=== PATIENT | female | born 1950 | race Caucasian/White ===

== ENCOUNTER 2024-06-07 18:19 | Emergency (ER) | payer MEDICARE, SELFPAY ==
[2024-06-07 18:24] VITALS: BP 164/78; PULSE 74; RESP 14; TEMP 37.2; O2SAT 95; BMI 21.3
--- NOTE | 2024-06-07 18:43 | ED_ITS ---
HPI - General Adult General Chief complaint: Laceration/Wound Stated complaint: left index finger cut Time Seen by Provider: 06/07/24 18:21 Source: patient Mode of arrival: ambulatory Limitations: no limitations History of Present Illness HPI narrative: 73-year-old female coming in today with a laceration to the left index finger. Patient states she was cutting branches with a chainsaw at the very end, a chain saw slipped and nicked her finger. Denies any other injury. Tetanus shot was last updated in 2007. Related Data Home Medications ?Medication ?Instructions ?Recorded ?Confirmed albuterol sulfate 90 mcg/actuation inhalation 06/07/24 aerosol inhaler hydrocodone 7.5 mg-acetaminophen 1 tab PO BID PRN 06/07/24 06/07/24 325 mg tablet metoprolol succinate 25 mg 25 mg PO DAILY 06/07/24 06/07/24 tablet,extended release 24 hr Allergies Allergy/AdvReac Type Severity Reaction Status Date / Time No Known Drug Allergies Allergy Verified 06/07/24 18:23 Review of Systems Status of ROS: Reports: 6 or more systems reviewed and unremarkable except as noted in History and below Exam Narrative: Exam Narrative: Well-nourished well-developed patient in no acute distress. Alert and oriented. Answers questions appropriately. Mood and affect are appropriate. Thoughts are goal oriented and rational. No tangential or magical thinking noted. Patient speaks in full sentences without needing to catch her breath. HEENT: Normocephalic atraumatic. Extraocular muscles are intact. Conjunctivae are moist without any icterus noted. Moist mucous membranes. Extremities: Patient has approximately a 1 in laceration to the dorsal-lateral surface of the pointer finger just over the PIP. The laceration goes through the dermis into the subcutaneous tissue come does not penetrate the subcutaneous tissue. She has full range of motion with flexion and extension of the finger. Const: Vital Signs, click to edit/add: Vital Signs - 24 hr 06/07/24 18:24 Temperature 99.0 F Pulse Rate [Pulse Oximeter] 74 Respiratory Rate 14 Blood Pressure [Ri ght Upper Arm] 164/78 H Pulse Oximetry 95 Oxygen Delivery Me thod Room Air Course Course ED Course: Digital block was done with xylocaine. Finger was cleaned in the usual sterile manner, wound explored and cleaned further. Four sutures with 4-0 Ethilon were placed without incident. Tetanus shot was updated. Vital Signs Vital signs: Initial Vital Signs Temperature 99.0 F 06/07/24 18:24 Temperature Source Temporal Artery Scan 06/07/24 18:24 Pulse Rate 74 06/07/24 18:24 Pulse Rhythm Regular 06/07/24 18:24 Respiratory Rate 14 06/07/24 18:24 Blood Pressure 164/78 H 06/07/24 18:24 Blood Pressure Mean 106 H 06/07/24 18:24 Blood Pressure Position Sitting 06/07/24 18:24 Pulse Oximetry 95 06/07/24 18:24 Oxygen Delivery Method Room Air 06/07/24 18:24 Vital Signs Temperature 99.0 F 06/07/24 18:24 Pulse Rate 74 06/07/24 18:24 Respiratory Rate 14 06/07/24 18:24 Blood Pressure 164/78 H 06/07/24 18:24 Pulse Oximetry 95 06/07/24 18:24 Oxygen Delivery Method Room Air 06/07/24 18:24 Temperature 99.0 F 06/07/24 18:24 Pulse Rate 74 06/07/24 18:24 Respiratory Rate 14 06/07/24 18:24 Blood Pressure 164/78 H 06/07/24 18:24 Pulse Oximetry 95 06/07/24 18:24 Oxygen Delivery Method Room Air 06/07/24 18:24 Medications Administered Medications: Discontinued Medications Generic Name Dose Route Start Last Admin Trade Name Freq PRN Reason Stop Dose Admin Diphtheria/Tetanus/Acell Pertussis 0.5 ml 06/07/24 18:40 06/07/24 18:49 Tetanus/Diphth/Pertussis 0.5 Ml Syringe IM 06/07/24 18:41 0.5 ml .ONCE ONE Administration Medical Decision Making MDM Narrative Medical decision making narrative: Laceration, treated per above. Discharge Plan Discharge Clinical Impression: Laceration Patient Disposition: Home, Self-Care Condition: Improved Additional Instructions: Keep wound clean and dry. Do not soak such as taking baths, swimming or doing dishes. Follow-up in approximately 1 week for suture removal with your primary care provider. Watch for signs and symptoms of infection including increasing redness of the area, purulent drainage, or fever. If this occurs follow-up right away with your doctor or return to the ER. Prescriptions: No Action hydrocodone-acetaminophen 7.5-325 mg tablet 1 tab PO BID PRN metoprolol succinate 25 mg tablet extended release 24 hr 25 mg PO DAILY albuterol sulfate 90 mcg/actuation HFA aerosol inhaler inhalation Stand Alone Forms: [facility] Info Instructions
[2024-06-07] MEDS: TETANUS/DIPHTH/PERTUSSIS 0.5 ML SYRINGE IM (18:49)
== END 2024-06-07 19:06 | disposition home or self-care (01) ==
PROVIDERS: Emergency Provider Family Medicine
DX: S61.211A Laceration without foreign body of left index finger without damage to nail, initial encounter (principal); W29.3XXA Contact with powered garden and outdoor hand tools and machinery, initial encounter
CPT/HCPCS: 12001; 90471; 90715; 99283; 99284

== ENCOUNTER 2025-05-28 10:45 | Outpatient (RCR) | payer MEDICARE, SELFPAY | END 2025-09-25 23:59 | disposition home or self-care (01) | PROVIDERS: Visit Provider Family Medicine | DX: M54.9 Dorsalgia, unspecified (principal); M54.6 Pain in thoracic spine; M25.512 Pain in left shoulder; Z51.89 Encounter for other specified aftercare | CPT/HCPCS: 97110; 97140; 97161 ==